=== PATIENT | male | born 1990 | race Two or more races ===

== ENCOUNTER 2017-10-09 14:52 | Emergency (ER) | payer OTHER, BC ==
[2017-10-09 15:06] VITALS: BP 120/70; PULSE 63; TEMP 97.6; BMI 31.5
--- NOTE | 2017-10-09 16:17 | PDOC ---
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, dropped a suture and went to grab and needle punctured left finger 10/09/17 16:28 Timing: just prior to arrival Severity: mild, moderate Exposed Location: Left: Finger(s) (3rd digit ) Assessing Significant Risk PEP: Yes Percutaneous Past History - Travel Traveled outside of the country in the last 30 days: No Close contact w/someone who was outside of country & ill: No - Past Medical History Allergies/Adverse Reactions: Allergies Allergy/AdvReac Type Severity Reaction Status Date / Time No Known Allergies Allergy Verified 10/09/17 15:04 Home Medications: Ambulatory Orders Amoxicillin/Potassium Clav [Augmentin 875-125 Tablet] 1 each PO BID #10 tablet 05/06/16 Asthma: Yes COPD: No DVT: No - Suicide/Smoking/Psychosocial Hx Smoking History: Never smoked Have you smoked in the past 12 months: No Information on smoking cessation initiated: No Hx Alcohol Use: No Drug/Substance Use Hx: No Substance Use Type: None Review of Systems - Review of Systems Able to Perform ROS?: Yes Is the patient limited Cambodian proficient: Yes Constitutional: Yes: See HPI. No: Symptoms Reported, Loss of Appetite, Malaise HEENTM: No: Symptoms Reported Integumentary: Yes: Symptoms Reported, See HPI, Other (puncture wound to left 3rd digit ) *Physical Exam - Vital Signs Last Vital Signs Temp Pulse Resp BP Pulse Ox 97.6 F 63 18 120/70 100 10/09/17 15:04 10/09/17 15:04 10/09/17 15:04 10/09/17 15:04 10/09/17 15:04 - Physical Exam General Appearance: Yes: Appropriately Dressed, Apparent Distress HEENT: positive: SHARI, Normal ENT Inspection, TMs Normal, Pharynx Normal Neck: negative: Tender Respiratory/Chest: positive: Lungs Clear Gastrointestinal/Abdominal: positive: Soft. 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 Exposure risk very very low and patient refuses PEP. Tetanus and hepatitis are up-to-date Discussed with patient and will follow up with occupational health *DC/Admit/Observation/Transfer Diagnosis at time of Disposition: Exposure to body fluids by contaminated hypodermic needle stick - Discharge Dispostion Disposition: HOME Condition at time of disposition: Stable Admit: No - Referrals - Patient Instructions Printed Discharge Instructions: How to Handle Body Fluid Exposure -- Healthcare Worker Additional Instructions: Keep wound clean and dressed with bacitracin daily Follow-up with occupational help for future testing - Post Discharge Activity Forms/Work/School Notes: Back to Work
[2017-10-09 16:27] LABS: BASO % 0.4 % (0-2.0); EOS % 3.1 % (0-4.5); HEMATOCRIT 47.4 % (35.4-49); HEMOGLOBIN 15.6 GM/dL (11.7-16.9); LYMPH % 30.5 % (8-40); MCH 28.8 pg (25.7-33.7); MCHC 32.9 g/dl (32.0-35.9); MEAN CELL VOLUME 87.3 fl (80-96); MEAN PLT VOLUME 6.9 fl (7.5-11.1); MONO % 10.4 % (3.8-10.2); NEUT % 55.6 % (42.8-82.8); PLATELET COUNT 342 K/MM3 (134-434); RBC 5.43 M/mm3 (4.00-5.60); RDW 13.9 % (11.9-15.9); WHITE BLOOD COUNT 6.3 K/mm3 (4.0-10.0)
[2017-10-09 17:20] LABS: ALBUMIN 4.5 g/dl (3.4-5.0); ANION GAP 10 (8-16); BLOOD UREA NITROGEN 19 mg/dL (7-18); CALCIUM 9.5 mg/dL (8.5-10.1); CHLORIDE 103 mmol/L (98-107); CHOLESTEROL 137 mg/dL (50-200); CO2 24 mmol/L (21-32); CREATININE 0.9 mg/dL (0.7-1.3); GAMMA GLUTAMYL TRANSPEPTIDASE 21 U/L (5-85); GLUCOSE,RANDOM 76 mg/dL (74-106); PHOSPHOROUS 3.6 mg/dL (2.5-4.9); POTASSIUM 4.1 mmol/L (3.5-5.1); SGOT/AST 23 U/L (15-37); SGPT/ALT 51 U/L (12-78); SODIUM 137 mmol/L (136-145); TOT PROT 7.7 g/dl (6.4-8.2); TRIGLYCERIDES 48 mg/dL (35-160); URIC ACID 8.1 mg/dL (2.6-7.2)
[2017-10-09 17:41] LABS: ALK PHOS 73 U/L (45-117); BILIRUBIN,TOTAL 0.5 mg/dL (0.2-1.0); LDH 233 U/L (87-241)
[2017-10-11 06:06] LABS: HBsAG SCREEN Negative (Negative); HEPATITIS B CORE ANTIBODY Negative (Negative)
== END 2017-10-09 17:18 | disposition home or self-care (01) ==
LOC: JERFT 14:52
DX: Z77.21 Contact with and (suspected) exposure to potentially hazardous body fluids (principal); S61.233A Puncture wound without foreign body of left middle finger without damage to nail, initial encounter; W46.1XXA Contact with contaminated hypodermic needle, initial encounter; Y93.89 Activity, other specified; Y92.234 Operating room of hospital as the place of occurrence of the external cause; Y99.0 Civilian activity done for income or pay
CPT/HCPCS: 36415; 80053; 82465; 82977; 83615; 84100; 84478; 84550; 85025; 86704; 86803; 87340; 87389; 99282-25

== ENCOUNTER 2018-11-20 13:39 | Emergency (ER) | payer BC, OTHER ==
[2018-11-20 13:59] VITALS: BP 109/61; PULSE 54; TEMP 98.1; BMI 33.0
--- NOTE | 2018-11-20 15:00 | PDOC ---
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 States impaled right index finger distal phalanx. Washed immediately with surgical scrub, expressed blood from the area, and used alcohol also. Came for evaluation and exposure protocol. Source patient will be tested for hepatitis and HIV which is pending currently. Source patient MR is [id number]. Patient states is not considering PEP at this time, and will wait for HIV testing results today of source patient. 11/20/18 15:06 Timing: this afternoon Severity: mild Exposed Location: Right: Finger(s) (right index finger) Assessing Significant Risk PEP: Yes Mucocutaneous, Yes Blood Past History - Travel Traveled outside of the country in the last 30 days: No Close contact w/someone who was outside of country & ill: No - Past Medical History Allergies/Adverse Reactions: Allergies Allergy/AdvReac Type Severity Reaction Status Date / Time No Known Allergies Allergy Verified 11/20/18 13:56 Home Medications: Ambulatory Orders NK [No Known Home Medication] 11/20/18 Asthma: Yes COPD: No DVT: No - Immunization History Tetanus Status: Less than 5 years TDAP Vaccination: Yes Immunization Up to Date: Yes Comment:: 11/20/18 15:01 Hep B UTD - Suicide/Smoking/Psychosocial Hx Smoking History: Never smoked Have you smoked in the past 12 months: No Hx Alcohol Use: No Drug/Substance Use Hx: No Substance Use Type: None Review of Systems - Review of Systems Able to Perform ROS?: Yes Is the patient limited Honduran proficient: Yes Constitutional: Yes: See HPI. No: Symptoms Reported, Chills, Fever HEENTM: No: Symptoms Reported Respiratory: Yes: See HPI. No: Symptoms reported Musculoskeletal: No: Symptoms Reported Integumentary: Yes: Symptoms Reported, See HPI All Other Systems: Reviewed and Negative *Physical Exam - Vital Signs Last Vital Signs Temp Pulse Resp BP Pulse Ox 98.1 F 54 L 16 109/61 100 11/20/18 13:57 11/20/18 13:57 11/20/18 13:57 11/20/18 13:57 11/20/18 13:57 - Physical Exam General Appearance: Yes: Nourished, Appropriately Dressed HEENT: positive: SHARI, TMs Normal Neck: positive: Supple. negative: Tender Respiratory/Chest: positive: Lungs Clear, Normal Breath Sounds Musculoskeletal: positive: Normal Inspection. 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 Will follow-up with employee health *DC/Admit/Observation/Transfer Diagnosis at time of Disposition: Exposure to body fluids by contaminated hypodermic needle stick - Discharge Dispostion Disposition: HOME Condition at time of disposition: Stable Decision to Admit order: No - Referrals - Patient Instructions Printed Discharge Instructions: How to Handle Body Fluid Exposure -- Healthcare Worker Additional Instructions: Wound clean and dry, reapply bacitracin until healed Employee Health will call to organize followup. and repeat Labs - Post Discharge Activity Forms/Work/School Notes: Back to Work
[2018-11-20 15:58] LABS: BASO % 0.6 % (0-2.0); EOS % 4.7 % (0-4.5); HEMATOCRIT 47.2 % (35.4-49); HEMOGLOBIN 16.3 GM/dL (11.7-16.9); LYMPH % 28.5 % (8-40); MCHC 34.5 g/dl (32.0-35.9); MEAN CELL VOLUME 89.8 fl (80-96); MONO % 11.5 % (3.8-10.2); NEUT % 54.7 % (42.8-82.8); PLATELET COUNT 320 K/MM3 (134-434); RBC 5.26 M/mm3 (4.00-5.60); RDW 13.7 % (11.9-15.9); WHITE BLOOD COUNT 6.2 K/mm3 (4.0-10.0)
[2018-11-20 16:21] LABS: ALBUMIN 4.3 g/dl (3.4-5.0); ALK PHOS 69 U/L (45-117); ANION GAP 4 MMOL/L (8-16); BILIRUBIN,TOTAL 0.4 mg/dL (0.2-1); BLOOD UREA NITROGEN 13 mg/dL (7-18); CALCIUM 9.5 mg/dL (8.5-10.1); CHLORIDE 106 mmol/L (98-107); CHOLESTEROL 165 mg/dL (50-200); CO2 29 mmol/L (21-32); CREATININE 0.8 mg/dL (0.55-1.3); GAMMA GLUTAMYL TRANSPEPTIDASE 30 U/L (5-85); GLUCOSE,RANDOM 88 mg/dL (74-106); PHOSPHOROUS 3.6 mg/dL (2.5-4.9); POTASSIUM 4.7 mmol/L (3.5-5.1); SGOT/AST 20 U/L (15-37); SGPT/ALT 50 U/L (13-61); SODIUM 139 mmol/L (136-145); TOT PROT 7.6 g/dl (6.4-8.2); TRIGLYCERIDES 65 mg/dL (0-150); URIC ACID 4.6 mg/dL (2.6-7.2)
[2018-11-20 16:34] LABS: LDH 217 U/L (87-246)
[2018-11-22 04:15] LABS: HBsAG SCREEN Negative (Negative)
== END 2018-11-20 17:16 | disposition home or self-care (01) ==
LOC: JERFT 13:39
DX: Z77.21 Contact with and (suspected) exposure to potentially hazardous body fluids (principal); W46.1XXA Contact with contaminated hypodermic needle, initial encounter; Y93.89 Activity, other specified; Y92.234 Operating room of hospital as the place of occurrence of the external cause; Y99.0 Civilian activity done for income or pay
CPT/HCPCS: 36415; 80053; 82465; 82977; 83615; 84100; 84478; 84550; 85025; 86317; 86706; 86803; 87340; 87389; 99281-25

== ENCOUNTER 2019-01-13 18:43 | Emergency (ER) | payer OTHER ==
[2019-01-13 20:09] VITALS: BP 134/72; PULSE 67; TEMP 98.5; BMI 35.2
--- NOTE | 2019-01-13 20:25 | PDOC ---
History of Present Illness - General Chief Complaint: Blood/Body Fluid Exposure SJR Stated Complaint: EYE WASH Time Seen by Provider: 01/13/19 19:48 - History of Present Illness Initial Comments: 01/13/19 20:20 28-year-old fully immunized male up-to-date on tetanus without comorbidities presents for evaluation after being splashed in the face with blood. Patient was involved in a surgical case when he was splashed with blood in his closed eye. He immediately rinsed his eye for 30 seconds to a minute the HIV status of the source patient is unknown Past History - Past Medical History Allergies/Adverse Reactions: Allergies Allergy/AdvReac Type Severity Reaction Status Date / Time No Known Allergies Allergy Verified 01/13/19 19:08 Home Medications: Ambulatory Orders NK [No Known Home Medication] 11/20/18 Asthma: Yes COPD: No DVT: No - Immunization History TDAP Vaccination: Yes Immunization Up to Date: Yes - Suicide/Smoking/Psychosocial Hx Smoking History: Never smoked Have you smoked in the past 12 months: No Hx Alcohol Use: No Drug/Substance Use Hx: No Substance Use Type: None Review of Systems - Review of Systems Constitutional: Yes: See HPI *Physical Exam - Vital Signs Last Vital Signs Temp Pulse Resp BP Pulse Ox 98.5 F 67 17 134/72 97 01/13/19 19:08 01/13/19 19:08 01/13/19 19:08 01/13/19 19:08 01/13/19 19:08 - Physical Exam Comments: 01/13/19 20:21 HEAD: NC/AT EYES: Conjuntiva clear MS: Full ROM in all joints without edema NEUROLOGIC: No gross sensory or motor deficits, NVID SKIN: Normal color and temperature no lesions or rashes Medical Decision Making - Medical Decision Making 01/13/19 20:22 Discussed the situation with the patient. He will confirm the HIV status of the patient in the meantime preliminary blood work was drawn on the patient that was splashed in the face. *DC/Admit/Observation/Transfer Diagnosis at time of Disposition: Employee exposure to body fluids - Discharge Dispostion Disposition: HOME Condition at time of disposition: Stable Decision to Admit order: No - Referrals - Patient Instructions Printed Discharge Instructions: How to Handle Body Fluid Exposure -- Healthcare Worker Additional Instructions: Return to the emergency room tomorrow for your results as well as with the results of the source patient should they consent to HIV testing.
== END 2019-01-13 20:26 | disposition home or self-care (01) ==
LOC: JERFT 18:43
DX: Z77.21 Contact with and (suspected) exposure to potentially hazardous body fluids (principal); X58.XXXA Exposure to other specified factors, initial encounter; Y93.F9 Activity, other caregiving; Y92.234 Operating room of hospital as the place of occurrence of the external cause; Y99.0 Civilian activity done for income or pay
CPT/HCPCS: 36415; 87389; 99281-25

== ENCOUNTER 2019-01-15 19:43 | Emergency (ER) | payer OTHER ==
[2019-01-15 19:49] VITALS: BP 143/89; PULSE 96; TEMP 98; BMI 35.2
--- NOTE | 2019-01-15 19:52 | PDOC ---
Rapid Medical Evaluation Chief Complaint: Blood/Body Fluid Exposure SJR Time Seen by Provider: 01/15/19 19:51 Medical Evaluation: Allergies Allergy/AdvReac Type Severity Reaction Status Date / Time No Known Allergies Allergy Verified 01/13/19 19:08 Vital Signs Temp Pulse Resp BP Pulse Ox 98.0 F 96 H 16 143/89 100 01/15/19 19:44 01/15/19 19:44 01/15/19 19:44 01/15/19 19:44 01/15/19 19:44 01/15/19 19:52 I have performed a brief in-person evaluation of this patient. The patient presents with a chief complaint of: Here for PEP, seen in ED 3 days ago after body fluid exposure (L eye) and refused PEP. States source is an elderly pt on HD who has since had a neg HIV/hep panel test. Pt states he still wants PEP Pertinent physical exam findings:Stable I have ordered the following:labs The patient will proceed to the ED for further evaluation Discharge Disposition - Diagnosis Employee exposure to body fluids, Exposure to blood or body fluid - Referrals Referrals: [facility] Providers [Provider Group] - Patient Instructions Printed Discharge Instructions: How to Handle Body Fluid Exposure -- Healthcare Worker Additional Instructions: Posterior prophylactic therapy as directed and follow-up with your primary care physician for the remainder of treatment. He may discontinue the treatment providing the source patient is negative for HIV. - Post Discharge Activity Work/School Note: Back to Work
[2019-01-15] MEDS ORDERED: HIV POST EXPOSURE PROPHYLAXIS KIT NR ONE (19:57)
--- NOTE | 2019-01-15 19:59 | PDOC ---
Post Exposure HPI - General Chief Complaint: Blood/Body Fluid Exposure SJR Stated Complaint: FOLLOW UP Time Seen by Provider: 01/15/19 19:51 - History of Present Illness Initial Comments: 01/15/19 19:55 Patient returns requesting post exposure prophylaxis therapy for HIV. The source patient was identified and tested however the results are not back yet. Patient would like to begin therapy today. 01/15/19 19:56 No Symptoms Past History - Past Medical History Allergies/Adverse Reactions: Allergies Allergy/AdvReac Type Severity Reaction Status Date / Time No Known Allergies Allergy Verified 01/13/19 19:08 Home Medications: Ambulatory Orders NK [No Known Home Medication] 11/20/18 Asthma: Yes COPD: No DVT: No - Immunization History TDAP Vaccination: Yes Immunization Up to Date: Yes - Suicide/Smoking/Psychosocial Hx Smoking History: Never smoked Have you smoked in the past 12 months: No Information on smoking cessation initiated: No Hx Alcohol Use: No Drug/Substance Use Hx: No Substance Use Type: None Review of Systems - Review of Systems Constitutional: Yes: See HPI *Physical Exam - Vital Signs Last Vital Signs Temp Pulse Resp BP Pulse Ox 98.0 F 96 H 16 143/89 100 01/15/19 19:44 01/15/19 19:44 01/15/19 19:44 01/15/19 19:44 01/15/19 19:44 - Physical Exam Comments: 01/15/19 19:56 HEAD: NC/AT EYES: Conjuntiva clear MS: Full ROM in all joints without edema NEUROLOGIC: No gross sensory or motor deficits, NVID SKIN: Normal color and temperature no lesions or rashes Medical Decision Making - Medical Decision Making 01/15/19 19:56 Post exposure prophylactic therapy ordered. Patient may discontinue therapy providing source patient is negative which she will follow-up on with employee health. *DC/Admit/Observation/Transfer Diagnosis at time of Disposition: Employee exposure to body fluids - Discharge Dispostion Disposition: HOME Condition at time of disposition: Stable Decision to Admit order: No - Referrals Referrals: [facility] Providers [Provider Group] - Patient Instructions Printed Discharge Instructions: How to Handle Body Fluid Exposure -- Healthcare Worker Additional Instructions: Posterior prophylactic therapy as directed and follow-up with your primary care physician for the remainder of treatment. He may discontinue the treatment providing the source patient is negative for HIV. - Post Discharge Activity Forms/Work/School Notes: Back to Work
[2019-01-15] MEDS ORDERED: HIV POST EXPOSURE PROPHYLAXIS KIT PO ONE (20:17)
[2019-01-15 20:22] LABS: BASO % 0.5 % (0-2.0); EOS % 4.8 % (0-4.5); HEMATOCRIT 45.6 % (35.4-49); HEMOGLOBIN 15.6 GM/dL (11.7-16.9); LYMPH % 26.3 % (8-40); MCHC 34.1 g/dl (32.0-35.9); MEAN PLT VOLUME 6.5 fl (7.5-11.1); MONO % 8.9 % (3.8-10.2); NEUT % 59.5 % (42.8-82.8); PLATELET COUNT 338 K/MM3 (134-434); RBC 5.18 M/mm3 (4.00-5.60); RDW 13.8 % (11.9-15.9); WHITE BLOOD COUNT 7.1 K/mm3 (4.0-10.0)
[2019-01-15 21:04] LABS: CREATININE 0.9 mg/dL (0.55-1.3)
[2019-01-15 21:05] LABS: ALBUMIN 4.2 g/dl (3.4-5.0); CO2 27 mmol/L (21-32)
[2019-01-15 21:16] LABS: ALK PHOS 69 U/L (45-117); ANION GAP 6 MMOL/L (8-16); BILIRUBIN,TOTAL 0.6 mg/dL (0.2-1); BLOOD UREA NITROGEN 19 mg/dL (7-18); CALCIUM 9.3 mg/dL (8.5-10.1); CHLORIDE 106 mmol/L (98-107); CHOLESTEROL 173 mg/dL (50-200); GAMMA GLUTAMYL TRANSPEPTIDASE 35 U/L (5-85); GLUCOSE,RANDOM 108 mg/dL (74-106); LDH 225 U/L (87-246); PHOSPHOROUS 3.7 mg/dL (2.5-4.9); POTASSIUM 3.9 mmol/L (3.5-5.1); SGOT/AST 29 U/L (15-37); SGPT/ALT 63 U/L (13-61); SODIUM 139 mmol/L (136-145); TOT PROT 7.6 g/dl (6.4-8.2); TRIGLYCERIDES 71 mg/dL (0-150)
[2019-01-17 04:15] LABS: HBsAG SCREEN Negative (Negative)
== END 2019-01-15 20:28 | disposition home or self-care (01) ==
LOC: JERFT 19:43
DX: Z77.21 Contact with and (suspected) exposure to potentially hazardous body fluids (principal); X58.XXXA Exposure to other specified factors, initial encounter; Y93.89 Activity, other specified; Y92.238 Other place in hospital as the place of occurrence of the external cause; Y99.0 Civilian activity done for income or pay
CPT/HCPCS: 36415; 80053; 82465; 82977; 83615; 84100; 84478; 85025; 86317; 86706; 86803; 87340; 99281-25

== ENCOUNTER 2021-01-05 08:50 | Emergency (ER) | payer OTHER ==
[2021-01-05 08:55] VITALS: BP 135/80; PULSE 82; TEMP 99.3; BMI 35.2
[2021-01-05] MEDS ORDERED: LIDOCAINE 5% TOPICAL PATCH TP ONE (09:14)
[2021-01-05] MEDS ORDERED: LIDOCAINE 5% TOPICAL PATCH ONE (09:19)
[2021-01-05] MEDS ORDERED: LIDOCAINE PATCH REMOVAL MC SCH (22:00)
== END 2021-01-05 10:41 | disposition home or self-care (01) ==
LOC: FER 08:50
DX: M54.5 Low back pain (principal)
CPT/HCPCS: 72100-TC-FY; 99283-25

== ENCOUNTER 2021-07-05 11:41 | Emergency (ER) | payer OTHER ==
[2021-07-05] MEDS ORDERED: IBUPROFEN 400 MG TABLET (FP) PO ONE (11:44)
[2021-07-05] MEDS ORDERED: ACETAMINOPHEN 325 MG TABLET (FP) PO ONE (11:44)
[2021-07-05] MEDS ORDERED: ACETAMINOPHEN 325 MG TABLET (FP) ONE (11:49)
[2021-07-05 12:20] VITALS: BP 149/82; BMI 34.4
[2021-07-05 14:05] VITALS: PULSE 90; TEMP 100
== END 2021-07-05 14:33 | disposition home or self-care (01) ==
LOC: FER 11:41
DX: B34.9 Viral infection, unspecified (principal)
CPT/HCPCS: 71045-TC-FY; 87804; 99284-25; C9803; U0003; U0005

== ENCOUNTER 2022-05-29 12:47 | Emergency (ER) | payer OTHER ==
[2022-05-29] MEDS ORDERED: EMTRICITABINE 200MG/TENOFOVIR 300MG PO ONE (12:55)
[2022-05-29] MEDS ORDERED: RALTEGRAVIR POTASSIUM 400 MG TAB PO ONE (12:55)
[2022-05-29 13:03] VITALS: BP 124/67; PULSE 77; RESP 16; TEMP 99.5; BMI 33.0
[2022-05-29] MEDS ORDERED: DIPHTH,PERTUSS(ACELL),TET 0.5 ML DISP.SYRIN IM ONE ×2 (13:03→13:09)
[2022-05-29] MEDS ORDERED: HIV POST EXPOSURE PROPHYLAXIS KIT PO ONE (13:15)
[2022-05-29] MEDS ORDERED: RALTEGRAVIR POTASSIUM 400 MG TAB PO SCH (13:30)
[2022-05-29 13:40] LABS: HEMATOCRIT 45.7 % (35.4-49); HEMOGLOBIN 16.1 G/dL (11.7-16.9); MCH 31.2 pg (25.7-33.7); MCHC 35.3 g/dl (32.0-35.9); MEAN CELL VOLUME 88.5 fl (80-96); MEAN PLT VOLUME 6.6 fl (7.5-11.1); PLATELET COUNT 268.8 10^3/uL (134-434); RBC 5.16 10^6/uL (4.00-5.60); RDW 14.3 % (11.9-15.9); WHITE BLOOD COUNT 6.7 10^3/uL (4.0-10.8)
[2022-05-29 14:08] LABS: ALBUMIN 4.1 g/dl (3.4-5.0); BILIRUBIN,TOTAL 0.8 mg/dl (0.2-1); CALCIUM 9.6 mg/dl (8.5-10); CREATININE 0.9 mg/dl (0.55-1.3); PHOSPHOROUS 3.8 mg/dl (2.5-4.9)
[2022-05-29 16:05] LABS: PLATELET ESTIMATE ADEQUATE
[2022-05-29 16:31] LABS: HIV INTERPRETATION NEGATIVE (NEGATIVE)
== END 2022-05-29 13:36 | disposition home or self-care (01) ==
LOC: FER 12:47
PROC: 3E0234Z Introduction of Serum, Toxoid and Vaccine into Muscle, Percutaneous Approach (ICD-10-PCS; principal; 2022-05-29)
DX: Z77.21 Contact with and (suspected) exposure to potentially hazardous body fluids (principal)
CPT/HCPCS: 36415; 80053; 82465; 82977; 83615; 84100; 84478; 84550; 85025; 86704; 86803; 87340; 87389; 87517; 90715; 99283-25

== ENCOUNTER 2023-04-10 08:56 | Emergency (ER) | payer OTHER ==
[2023-04-10 09:24] VITALS: BP 142/91; PULSE 65; RESP 20; TEMP 97.7; BMI 28.7
== END 2023-04-10 10:01 | disposition home or self-care (01) ==
LOC: FER 08:56
DX: Z77.21 Contact with and (suspected) exposure to potentially hazardous body fluids (principal)
CPT/HCPCS: 99282-25

== ENCOUNTER 2023-10-08 10:08 | Emergency (ER) | payer OTHER ==
[2023-10-08 10:21] VITALS: BP 133/85; PULSE 62; RESP 18; TEMP 98.2; BMI 35.9
== END 2023-10-08 10:49 | disposition home or self-care (01) ==
LOC: JERFT 10:08 → JER 10:08 → JERFT 10:49
DX: T23.121A Burn of first degree of single right finger (nail) except thumb, initial encounter (principal); X15.0XXA Contact with hot stove (kitchen), initial encounter; Y92.9 Unspecified place or not applicable
CPT/HCPCS: 99283-25